=== PATIENT | female | born 2000 | race African-American/Black ===

== ENCOUNTER 2021-03-05 12:09 | Emergency (ER) | payer OTHER ==
[~2021-03-05] VITALS: Ht 160 cm; Wt 61.2 kg
[2021-03-05 12:15] VITALS: BP_SYST 119
[2021-03-05] MEDS ORDERED: CYCL10TA24 PO (13:45)
[2021-03-05] MEDS ORDERED: NAPR-688 PO (13:45)
[2021-03-05 13:52] VITALS: BP_SYST 119
== END 2021-03-05 13:53 | disposition home or self-care (01) ==
LOC: SED 12:09
DX: S29.012A Strain of muscle and tendon of back wall of thorax, initial encounter (principal); Z79.899 Other long term (current) drug therapy; V49.49XA Driver injured in collision with other motor vehicles in traffic accident, initial encounter; Y93.89 Activity, other specified; Y92.89 Other specified places as the place of occurrence of the external cause; Y99.8 Other external cause status
CPT/HCPCS: 71046-TC; 81025; 99283